=== PATIENT | male | born 1985 | race Caucasian/White ===

== ENCOUNTER 2022-08-29 10:47 | Emergency (ER) | payer OTHER ==
[~2022-08-29] VITALS: Ht 177.8 cm; Wt 105.0 kg
[2022-08-29 11:04] VITALS: BP 134/83
[2022-08-29] MEDS ORDERED: PHENTERMINE HCL30 MG PO (11:36)
[2022-08-29 12:12] VITALS: BP 134/83
== END 2022-08-29 12:25 | disposition home or self-care (01) | DRG 206 ==
LOC: ED 10:47
DX: M94.0 Chondrocostal junction syndrome [Tietze] (principal)